=== PATIENT | male | born 1985 | race Caucasian/White ===

== ENCOUNTER 2017-01-19 19:45 | Emergency (ER) | payer OTHER ==
[~2017-01-19] VITALS: Ht 177.8 cm; Wt 71.2 kg
[2017-01-19 19:52] VITALS: TEMP 37.1; Ht 177.8 cm; Wt 71.2 kg
[2017-01-19] MEDS ORDERED: MULT-506 PO (19:57)
[2017-01-19] MEDS ORDERED: IBUP-1050 PO (19:57)
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
--- NOTE | 2017-01-19 21:12 | DIAGNOSTIC IMAGING REPORT ---
LEFT ELBOW 3 VIEWS CLINICAL HISTORY: Left elbow pain. FINDINGS: 3 views of left elbow are obtained. No prior studies are available for comparison at the time of dictation. The skeletal structures are well mineralized. No fracture is seen. The joint spaces are well-maintained. There is no joint effusion. The overlying soft tissues are within normal limits. IMPRESSION: Unremarkable radiographic assessment of the left elbow. Electronically signed by: Barrett Beck M.D. 01/19/2017 9:11 PM Dictated Date/Time: 01/19/2017 9:11 PM
--- NOTE | 2017-01-19 21:14 | DIAGNOSTIC IMAGING REPORT ---
LEFT ANKLE 3 VIEWS CLINICAL HISTORY: Left ankle injury. FINDINGS: 3 views of left ankle are obtained. No prior studies are available for comparison at the time of dictation. The skeletal structures are well mineralized. No fracture is seen. The ankle mortise is intact. There is a small joint effusion. Soft tissue swelling is identified, greatest overlying the lateral malleolus. IMPRESSION: Joint effusion and soft tissue swelling with no radiographic evidence of left ankle fracture. Electronically signed by: Barrett Beck M.D. 01/19/2017 9:13 PM Dictated Date/Time: 01/19/2017 9:11 PM
--- NOTE | 2017-01-19 21:22 | DIAGNOSTIC IMAGING REPORT ---
SINGLE VIEW PELVIS; 2 VIEWS LEFT HIP CLINICAL HISTORY: Trauma. Left hip pain. FINDINGS: An AP view of the pelvis with AP and frog-leg views of the left hip are obtained. No prior studies are available for comparison at the time of dictation. The skeletal structures are well mineralized. No fracture is seen in the hips or bony pelvis. The hip joints are well-maintained. The sacroiliac joints are normal in appearance. The overlying soft tissues are normal as visualized. There is a nonobstructed abdominal bowel gas pattern. IMPRESSION: No acute bony abnormality is seen in the hips or pelvis. Electronically signed by: Barrett Beck M.D. 01/19/2017 9:21 PM Dictated Date/Time: 01/19/2017 9:20 PM
[2017-01-19 23:00] VITALS: BP 124/80; PULSE 62; O2SAT 99
== END 2017-01-19 23:04 | disposition home or self-care (01) ==
LOC: EDBD 19:45 → C.EDC 19:49
DX: T14.8 Other injury of unspecified body region (principal); V19.3XXA Pedal cyclist (driver) (passenger) injured in unspecified nontraffic accident, initial encounter; R22.42 Localized swelling, mass and lump, left lower limb; Z87.891 Personal history of nicotine dependence